=== PATIENT | male | born 1970 | race Two or more races ===

== ENCOUNTER 2016-10-17 15:35 | Inpatient (IN) | payer MEDICAID ==
[~2016-10-17] VITALS: Ht 180.3 cm; Wt 140.4 kg
[~2016-10-17 15:35] MED LIST: CLON0.2T PO
[2016-10-17] MEDS ORDERED: SODIUM CHLORIDE 0.9% 1,000 ML IV ONE (16:03)
[2016-10-17 16:27] LABS: Basophils # (auto) 0.1 uL; Basophils % (auto) 0.7 % (0.0-2.0); CONDITION Y; Eosinophils # (auto) 0.5 uL; Eosinophils % (auto) 3.9 % (0.0-7.0); Hematocrit 35.5 % (41.0-53.0); Hemoglobin 12.3 g/dL (13.5-17.5); Lymphocytes # (auto) 2.8 uL; Lymphocytes % (auto) 20.2 % (10.0-50.0); Mean Corpuscular Hemoglobin 31.5 pg (28.0-32.0); Mean Corpuscular Hgb Conc. 34.7 g/dL (32.0-36.0); Mean Corpuscular Volume 90.6 fL (80.0-100.0); Mean Platelet Volume 9.6 fL (7.4-10.4); Monocytes # (auto) 0.7 uL; Monocytes % (auto) 5.2 % (0.0-12.0); Neutrophils # (auto) 9.8 uL; Platelet Count (auto) 375 10^3/uL (140-450); Red Cell Distribution Width 13.8 % (11.6-16.0); White Blood Cell 14.1 10^3/uL (4.4-10.8)
[2016-10-17 17:07] LABS: B-Type Natriuretic Peptide 51.41 pg/mL (0-100)
[2016-10-17 17:08] LABS: Albumin 3.8 g/dL (3.4-5.0); Bilirubin, Total 0.3 mg/dL (0.2-1.0); Calcium 6.7 mg/dL (8.5-10.1); Magnesium 2.3 mg/dL (1.6-2.6); Total Protein 9.2 g/dL (6.4-8.2)
[2016-10-17] MEDS ORDERED: PROMETHAZINE HCL 25 MG/ML 1ML ONE (17:10)
[2016-10-17 17:27] LABS: Potassium 7.5 mmol/L (3.5-5.1); Temperature: 23.9 C (20.0-25.0)
[2016-10-17] MEDS ORDERED: CALCIUM CHLOR(10%) 100MG/ML 10ML SYRINGE IV ONE (17:33)
[2016-10-17] MEDS ORDERED: FUROSEMIDE 40 MG/4 ML VIAL ONE (17:33)
[2016-10-17] MEDS ORDERED: SODIUM BICARBONATE 8.4% INJ 50ML SYRINGE ONE (17:35)
[2016-10-17] MEDS ORDERED: InsuLIN REG 1unit/0.01ml Soln (100units/ml) ONE (17:35)
[2016-10-17] MEDS ORDERED: ALBUTEROL SULF 2.5 MG/0.5ML(0.5%) NEB SOLN NEB ONE (18:00)
[2016-10-17] MEDS ORDERED: SODIUM POLYSTYRENE SULF 15GM/60ML SUSP PO ONE (18:00)
[2016-10-17] MEDS ORDERED: DEXTROSE (50%) 50ML SYRG IV ONE ×2 (18:15→22:15)
[2016-10-17] MEDS ORDERED: TEMAZEPAM 15 MG CAP PO PRN (18:15)
[2016-10-17] MEDS ORDERED: NITROGLYCERIN 0.4 MG SL TAB SL PRN (18:15)
[2016-10-17] MEDS ORDERED: LACTULOSE 20Gm/30ML SOLN PO PRN (18:15)
[2016-10-17] MEDS ORDERED: MORPHINE SULF INJ 2 MG/ML SYRINGE 1ML IV PRN (18:15)
[2016-10-17] MEDS ORDERED: HYDROcodone-ACET 5/325MG TAB PO PRN (18:15)
[2016-10-17] MEDS ORDERED: InsuLIN REG 1unit/0.01ml Soln (100units/ml) IV ONE ×2 (18:15→22:15)
[2016-10-17] MEDS ORDERED: MORPHINE SULFATE 4 MG/ML SYRG IV PRN (18:15)
[2016-10-17] MEDS ORDERED: LORazepam 0.5 MG TAB PO PRN (18:15)
[2016-10-17] MEDS ORDERED: DEXTROSE (50%) 50ML SYRG IV PRN ×2 (18:15)
[2016-10-17] MEDS ORDERED: ACETAMINOPHEN 500 MG TAB PO PRN (18:15)
[2016-10-17] MEDS: ACCU-CHEK COMFORT CURVE STRIP VI SCH ×3 (20:10→23:19)
[2016-10-17 21:50] LABS: Albumin 3.6 g/dL (3.4-5.0); BUN/Creatinine Ratio 5.8; Calcium 6.6 mg/dL (8.5-10.1)
[2016-10-17 21:58] LABS: Bilirubin, Total 0.4 mg/dL (0.2-1.0)
[2016-10-17 21:59] LABS: Total Protein 9.1 g/dL (6.4-8.2)
[2016-10-17 22:01] LABS: Potassium 7.4 mmol/L (3.5-5.1)
[2016-10-17] MEDS ORDERED: CALCIUM GLUC 4.65 MEQ/10ML 4.65 MEQ in SODIUM CHL 0.9% 50 ML IV ONE (22:15)
[2016-10-17] MEDS ORDERED: CALCIUM GLUC 4.65 MEQ/10ML 10 ML IV ONE (22:42)
[2016-10-18] MEDS: ACCU-CHEK COMFORT CURVE STRIP VI SCH ×6 (00:30→23:36)
[2016-10-18] MEDS: InsuLIN REG 1unit/0.01ml Soln (100units/ml) SC SCH ×5 (00:30→23:36)
[2016-10-18] MEDS ORDERED: InsuLIN REG 1unit/0.01ml Soln (100units/ml) ONE ×2 (00:30→06:08)
[2016-10-18 04:30] LABS: Basophils # (auto) 0.1 uL; Basophils % (auto) 0.7 % (0.0-2.0); CONDITION Y; Eosinophils # (auto) 0.4 uL; Eosinophils % (auto) 2.8 % (0.0-7.0); Hematocrit 38.6 % (41.0-53.0); Hemoglobin 12.9 g/dL (13.5-17.5); Lymphocytes # (auto) 2.6 uL; Lymphocytes % (auto) 19.3 % (10.0-50.0); Mean Corpuscular Hgb Conc. 33.5 g/dL (32.0-36.0); Mean Corpuscular Volume 92.6 fL (80.0-100.0); Mean Platelet Volume 9.8 fL (7.4-10.4); Monocytes # (auto) 0.7 uL; Monocytes % (auto) 5.3 % (0.0-12.0); Neutrophils # (auto) 9.5 uL; Neutrophils % (auto) 71.9 % (37.0-80.0); Platelet Count (auto) 337 10^3/uL (140-450); Red Cell Distribution Width 14.1 % (11.6-16.0); White Blood Cell 13.3 10^3/uL (4.4-10.8)
[2016-10-18 05:13] LABS: Albumin 3.7 g/dL (3.4-5.0); BUN/Creatinine Ratio 6.3; Bilirubin, Total 0.3 mg/dL (0.2-1.0); Calcium 7.4 mg/dL (8.5-10.1); Potassium 5.3 mmol/L (3.5-5.1); Total Protein 8.7 g/dL (6.4-8.2)
[2016-10-18] MEDS: PANTOPRAZOLE 40 MG TAB PO SCH (10:00)
[2016-10-18] MEDS: ENOXAPARIN SOD 30 MG/0.3 ML SYRINGE SC SCH (10:00)
[2016-10-18] MEDS ORDERED: ENOXAPARIN SOD 30 MG/0.3 ML SYRINGE ONE (12:55)
[2016-10-18 14:03] LABS: Basophils # (auto) 0.1 uL; Basophils % (auto) 0.6 % (0.0-2.0); CONDITION Y; Eosinophils # (auto) 0.3 uL; Eosinophils % (auto) 2.4 % (0.0-7.0); Hematocrit 41.5 % (41.0-53.0); Hemoglobin 14.1 g/dL (13.5-17.5); Lymphocytes # (auto) 1.9 uL; Lymphocytes % (auto) 16.2 % (10.0-50.0); Mean Corpuscular Hemoglobin 31.1 pg (28.0-32.0); Mean Corpuscular Volume 91.4 fL (80.0-100.0); Mean Platelet Volume 9.7 fL (7.4-10.4); Monocytes # (auto) 0.6 uL; Monocytes % (auto) 4.9 % (0.0-12.0); Neutrophils # (auto) 9.1 uL; Neutrophils % (auto) 75.9 % (37.0-80.0); Platelet Count (auto) 295 10^3/uL (140-450); Red Cell Distribution Width 14.4 % (11.6-16.0); White Blood Cell 11.9 10^3/uL (4.4-10.8)
[2016-10-18] MEDS ORDERED: PANTOPRAZOLE 40 MG TAB PO ONE (14:57)
[2016-10-18 15:17] LABS: Albumin 3.8 g/dL (3.4-5.0); BUN/Creatinine Ratio 4.9; Bilirubin, Total 0.4 mg/dL (0.2-1.0); Calcium 7.8 mg/dL (8.5-10.1); Potassium 4.2 mmol/L (3.5-5.1); Total Protein 9.4 g/dL (6.4-8.2)
[2016-10-18 16:45] VITALS: BP 130/89
[2016-10-18 16:51] VITALS: BP 130/89
[2016-10-18 17:00] VITALS: BP 137/87
[2016-10-18] MEDS ORDERED: InsuLIN REG 1unit/0.01ml Soln (100units/ml) SC SCH (18:00)
[2016-10-18] MEDS ORDERED: ASPI-498 OR (19:15)
[2016-10-18] MEDS ORDERED: NIF30XLT PO (19:15)
[2016-10-18] MEDS ORDERED: CAR125T OR (19:15)
[2016-10-18 21:31] VITALS: BP 99/70
[2016-10-18 22:51] VITALS: BP 133/84
[2016-10-19 05:06] VITALS: BP 108/64
[2016-10-19] MEDS: ACCU-CHEK COMFORT CURVE STRIP VI SCH ×2 (05:47→12:27)
[2016-10-19] MEDS: InsuLIN REG 1unit/0.01ml Soln (100units/ml) SC SCH ×2 (05:47→12:27)
[2016-10-19 06:20] LABS: Basophils # (auto) 0.1 uL; Basophils % (auto) 0.8 % (0.0-2.0); CONDITION Y; Eosinophils # (auto) 0.4 uL; Eosinophils % (auto) 2.9 % (0.0-7.0); Hematocrit 39.4 % (41.0-53.0); Hemoglobin 13.1 g/dL (13.5-17.5); Lymphocytes # (auto) 3.7 uL; Mean Corpuscular Hemoglobin 30.9 pg (28.0-32.0); Mean Corpuscular Hgb Conc. 33.4 g/dL (32.0-36.0); Mean Corpuscular Volume 92.6 fL (80.0-100.0); Mean Platelet Volume 9.9 fL (7.4-10.4); Monocytes % (auto) 7.9 % (0.0-12.0); Neutrophils # (auto) 7.2 uL; Neutrophils % (auto) 58.4 % (37.0-80.0); Platelet Count (auto) 256 10^3/uL (140-450); Red Cell Distribution Width 14.3 % (11.6-16.0); White Blood Cell 12.3 10^3/uL (4.4-10.8)
[2016-10-19 06:56] LABS: Albumin 3.5 g/dL (3.4-5.0); BUN/Creatinine Ratio 5.4; Bilirubin, Total 0.4 mg/dL (0.2-1.0); Potassium 5.2 mmol/L (3.5-5.1); Total Protein 8.4 g/dL (6.4-8.2)
[2016-10-19 10:09] VITALS: BP 105/57
[2016-10-19] MEDS: PANTOPRAZOLE 40 MG TAB PO SCH (10:15)
[2016-10-19] MEDS: ENOXAPARIN SOD 30 MG/0.3 ML SYRINGE SC SCH (10:15)
[2016-10-19 12:04] VITALS: BP 137/68
[2016-10-19] MEDS ORDERED: SODIUM POLYSTYRENE SULF 15GM/60ML SUSP PO ONE (13:00)
[2016-10-19 14:37] VITALS: BP 137/68
== END 2016-10-19 15:36 | disposition home or self-care (01) | DRG 194 ==
LOC: ER 15:35 → EDBD 15:35 → UNDOADMIN 15:36 → TELE 15:36 → ER 19:47 → TELE-WESTW 10-18 17:24
PROVIDERS: ADMIT Internal Medicine; ATTEND Internal Medicine
PROC: 5A1D00Z (ICD-10-PCS; principal; 2016-10-17)
DX: I13.2 Hypertensive heart and chronic kidney disease with heart failure and with stage 5 chronic kidney disease, or end stage renal disease (principal); E11.21 Type 2 diabetes mellitus with diabetic nephropathy; N18.6 End stage renal disease; N25.81 Secondary hyperparathyroidism of renal origin; D64.9 Anemia, unspecified; E87.5 Hyperkalemia; E66.9 Obesity, unspecified; J98.11 Atelectasis; M10.9 Gout, unspecified; Z99.2 Dependence on renal dialysis; E11.22 Type 2 diabetes mellitus with diabetic chronic kidney disease; E78.5 Hyperlipidemia, unspecified; Z82.49 Family history of ischemic heart disease and other diseases of the circulatory system; Z83.3 Family history of diabetes mellitus; Z88.8 Allergy status to other drugs, medicaments and biological substances; I50.9 Heart failure, unspecified
CPT/HCPCS: 36415; 71020; 80053; 80061; 82962; 83036; 83735; 83880; 84443; 84484; 85025; 87081; 90935; 93005; 94640; 96360; 99291; J1815

== ENCOUNTER 2019-04-29 19:21 | Emergency (ER) | payer MEDICAID ==
[~2019-04-29] VITALS: Ht 180.3 cm; Wt 63.5 kg
[~2019-04-29 19:21] MED LIST changes: +ASPI-404 PO; +ASPI-498 OR; +CAR125T OR; +CARV12.544 PO; +LISI40TA PO; +NIF10C PO; +NIFE1TAB36 PO
[2019-04-29 20:26] LABS: Basophils # (auto) 0.1 uL; Basophils % (auto) 1.1 % (0.0-2.0); Eosinophils # (auto) 0.2 uL; Hematocrit 37.5 % (41.0-53.0); Hemoglobin 12.6 g/dL (13.5-17.5); Lymphocytes # (auto) 1.7 uL; Lymphocytes % (auto) 34.7 % (10.0-50.0); Mean Corpuscular Hemoglobin 30.5 pg (28.0-32.0); Mean Corpuscular Hgb Conc. 33.5 g/dL (32.0-36.0); Monocytes # (auto) 0.7 uL; Monocytes % (auto) 15.3 % (0.0-12.0); Neutrophils # (auto) 2.2 uL; Neutrophils % (auto) 44.9 % (37.0-80.0); Nucleated Red Blood Cells % 0.2 %; Platelet Count (auto) 199 10^3/uL (140-450); Red Blood Cells 4.12 10^6/uL (4.5-5.90); Red Cell Distribution Width 14.6 % (11.8-14.3); White Blood Cell 4.8 10^3/uL (4.4-10.8)
[2019-04-29 21:01] LABS: Albumin 3.7 g/dL (3.4-5.0); Calcium 8.2 mg/dL (8.5-10.1); Magnesium 2.5 mg/dL (1.6-2.6); Potassium 4.5 mmol/L (3.5-5.1)
[2019-04-29 21:06] LABS: BUN/Creatinine Ratio 5.1; Bilirubin, Total 0.8 mg/dL (0.2-1.0)
[2019-04-29 22:16] LABS: INR 1.04 (0.9-1.15); Partial Thromboplastin Time 33.1 sec (23.64-32.05)
[2019-04-30 02:02] VITALS: BP 139/73
== END 2019-04-30 02:05 | disposition home or self-care (01) ==
LOC: EDBD 19:21 → ER 19:21
DX: J20.9 Acute bronchitis, unspecified (principal); I12.0 Hypertensive chronic kidney disease with stage 5 chronic kidney disease or end stage renal disease; E11.22 Type 2 diabetes mellitus with diabetic chronic kidney disease; N18.6 End stage renal disease; Z99.2 Dependence on renal dialysis; M10.9 Gout, unspecified; E78.5 Hyperlipidemia, unspecified
CPT/HCPCS: 36415; 71045; 80053; 83735; 83880; 84484; 85025; 85379; 85610; 85730; 87040; 93005; 93971